=== PATIENT | female | born 1970 | race Caucasian/White ===

== ENCOUNTER 2017-05-12 07:47 | Day surgery (SDC) | payer BC ==
[~2017-05-12] VITALS: Ht 160 cm; Wt 63.5 kg
[~2017-05-12 07:47] MED LIST: CEFAZOLIN SOD 1 GM in D5W 50 ML IV ONE
[2017-05-12] MEDS ORDERED: DEXAMETHASONE SOD PHOSPHATE 4 MG/ML VIAL IVP ONE (13:20)
[2017-05-12] MEDS ORDERED: ROCURONIUM BROMIDE 10 MG/ML (ZEMURON) IV ONE (13:20)
[2017-05-12] MEDS ORDERED: ONDANSETRON HCL 4 MG/2 ML VIAL IVP ONE (13:20)
[2017-05-12] MEDS ORDERED: NS 1000 ML BAG IV ONE (13:20)
[2017-05-12] MEDS ORDERED: fentaNYL CITRATE 250 MCG/5 ML AMP IV ONE (13:20)
[2017-05-12] MEDS ORDERED: LR 1,000 ML IV.SOLN IV ONE (13:20)
[2017-05-12] MEDS ORDERED: KETOROLAC TROMETHAMINE 30 MG VIAL IVP ONE (13:20)
[2017-05-12] MEDS ORDERED: MIDAZOLAM HCL 5 MG/5 ML VIAL IVP ONE (13:20)
[2017-05-12] MEDS ORDERED: PROPOFOL 200MG/ 20ML VIAL (DIPRIVAN) IV ONE (13:20)
[2017-05-12] MEDS ORDERED: SEVOFLURANE 15 MIN GAS INH ONE (13:20)
[2017-05-12] MEDS ORDERED: OXYCODONE/ACETAMINOPHEN 5-325 TABLET PO PRN ×2 (15:00)
[2017-05-12] MEDS ORDERED: ONDANSETRON HCL 4 MG/2 ML VIAL IVP PRN (15:00)
[2017-05-12] MEDS ORDERED: HYDROcodone/ACETAMIN 5-325 MG TAB (NORCO/ VICODIN) PO PRN (15:00)
[2017-05-12] MEDS ORDERED: LR 1,000 ML IV SCH (15:39)
[2017-05-12] MEDS ORDERED: HYDROmorphone 1 MG INJ. 1 MG/ML AMPUL IVP PRN (15:45)
[2017-05-12] MEDS ORDERED: HYDROmorphone 2 MG/ML VIAL IVP PRN ×2 (15:45)
[2017-05-12] MEDS ORDERED: MEPERIDINE HCL/PF 25 MG/ML DISP.SYRIN IVP PRN (15:45)
[2017-05-12 16:49] VITALS: BP_SYST 122
== END 2017-05-12 17:31 | disposition home or self-care (01) ==
LOC: SDS 07:47 → SMU 07:53 → SDS 17:31
PROVIDERS: ATTEND Specialist
DX: Z30.2 Encounter for sterilization (principal); N92.1 Excessive and frequent menstruation with irregular cycle; N85.6 Intrauterine synechiae; Z98.890 Other specified postprocedural states; T83.39XA Other mechanical complication of intrauterine contraceptive device, initial encounter
CPT/HCPCS: 58301; 58563; 58670; 88300; 88305; C1727; J0690; J1100; J1885; J2250; J2405; J2704; J3010; J7030; J7060; J7120